=== PATIENT | male | born 1990 | race Two or more races ===

== ENCOUNTER 2021-06-08 19:30 | Emergency (ER) | payer SELFPAY ==
[2021-06-08 19:31] VITALS: BP 148/90; PULSE 85; RESP 18; TEMP 36.9; O2SAT 99; BMI 27.4
--- NOTE | 2021-06-08 19:48 | ECG_ITS ---
APPROVED REPORT Exam: Resting ECG HR:87 bpm ECG Measurements Heart Rate 87 AXES PA 162 P 53 QRSd 78 QRS 47 QT 328 T 64 QTc 394 Conclusion Normal sinus rhythm Nonspecific T wave abnormality Abnormal ECG Electronically signed by : Ramón Montez MD 06/11/2021 20:43:56
--- NOTE | 2021-06-08 19:49 | XR_ITS ---
PROCEDURE INFORMATION: Exam: XR Chest Exam date and time: 06/08/2021 7:49 PM Age: 31 years old Clinical indication: Dyspnea; Patient HX: SOA, non smoker TECHNIQUE: Imaging protocol: XR of the chest. Views: 2 views. COMPARISON: No relevant prior studies available. FINDINGS: Lungs: Lungs are clear. Pleural spaces: No pleural effusion. No pneumothorax. Heart/Mediastinum: Cardiomediastinal silouhette is within normal limits. Bones/joints: No acute osseous abnormality. Soft tissues: Unremarkable. IMPRESSION: No acute findings.
[2021-06-08 20:05] LABS: Basophils % 0.8 % (0.1-2.0); Eosinophils % 0.1 % (0.1-12.0); Hematocrit 44.4 % (42.0-52.0); Hemoglobin 14.5 g/dL (14.1-18.0); Lymphocytes # 0.8 K/mm3 (0.7-4.5); Mean Corpuscular HGB Conc 32.8 g/dL (31.8-35.4); Mean Corpuscular Hemoglobin 30.4 pg (27.0-31.2); Mean Corpuscular Volume 92.8 fl (80-94); Mean Platelet Volume 9.3 fl (7.4-10.4); Monocytes # 0.2 K/mm3 (0.1-1.0); Monocytes % 5.4 % (1.7-9.3); Neutrophils # 3.3 K/mm3 (1.8-7.8); Neutrophils % 74.7 % (37.0-80.0); Platelet Count 200 K/mm3 (142-424); Red Blood Count 4.78 M/mm3 (4.60-6.20); Red Cell Distribution Width 12.9 % (11.5-17.5); White Blood Count 4.4 K/mm3 (4.8-10.8)
[2021-06-08 20:07] LABS: Chloride 100 mmol/L (98-107)
[2021-06-08 20:08] LABS: Potassium 3.9 mmoL/L (3.5-5.1); Sodium 138 mmol/L (136-145)
[2021-06-08 20:10] LABS: Alanine Aminotransferase 28 U/L (12-78); Albumin Level 4.3 g/dl (3.5-5.0); Albumin/Globulin Ratio 1.2 (1.1-1.8); Alkaline Phosphatase 126 U/L (38-126); Anion Gap 16.9 mEq/L (5-15); Aspartate Amino Transferase 37 U/L (17-59); Bilirubin,Total 0.2 mg/dl (0.2-1.3); Blood Urea Nitrogen 9 mg/dl (9-20); Carbon Dioxide 25 mmol/L (22.0-30.0); Creatinine Clearance Estimated 123 mL/min (50-200); Estimated Glomerular Filt Rate 87 ml/min (>60); GFR (African American) 105 ML/MIN (>60); Globulin 3.7 g/dL (1.3-3.2)
[2021-06-08 20:11] LABS: Calcium 8.4 mg/dl (8.4-10.2); Glucose 113 mg/dl (74-100)
[2021-06-08 20:14] LABS: Lactic Acid 1.5 mmol/L (0.7-2.1)
[2021-06-08 20:16] LABS: C-Reactive Protein 41.1 mg/L (0-4)
[2021-06-08 20:20] LABS: Influenza A, PCR Not Detected (NotDetected); Influenza B, PCR Not Detected (NotDetected)
--- NOTE | 2021-06-08 20:31 | [facility].EDSOB ---
ED Disposition Clinical Impression: COVID-19, Pleurisy Disposition: Home, Self-Care Condition on Discharge: Good Instructions: DI for COVID-19 (Suspected or Confirmed ) Additional Instructions: fluids and advil/tyenol and see pcp for follow up Referrals: Provider,Referral, [Primary Care Provider] - - Critical Care Critical Care Time: No Attestation: On 06/08/21, the high probability of a clinically significant, sudden or life threatening deterioration of the following system(s) required my full and direct attention, intervention and personal management. The time I documented below is in addition to time spent performing reported procedures but includes the following listed in this critical care notation. Medical Decision Making - Medical Records Medical records reviewed: Yes: I reviewed the patient's medical records. - Alan Inquiry Pt receiving controlled substance: No Vital Signs: 06/08/21 19:31 Temperature 98.4 F Temperature Source Oral Pulse Rate [Right] 85 Respiratory Rate 18 Blood Pressure [Right Arm] 148/90 H Blood Pressure Mean [Right Arm] 109 02 Sat by Pulse Oximetry 99 - Lab Data Lab results reviewed: Yes: I reviewed the patient's lab results. Lab Results 06/08/21 19:51: WBC 4.4 L, RBC 4.78, Hgb 14.5, Hct 44.4, MCV 92.8, MCH 30.4, MCHC 32.8, RDW 12.9, Plt Count 200, MPV 9.3, Neut % (Auto) 74.7, Lymph % (Auto) 19.0, [place] % (Auto) 5.4, Eos % (Auto) 0.1, Baso % (Auto) 0.8, Neut # (Auto) 3.3, Lymph # (Auto) 0.8, [place] # (Auto) 0.2, Eos # (Auto) 0.0, Baso # (Auto) 0.0, ESR 27 H 06/08/21 19:51: Sodium 138, Potassium 3.9, Chloride 100, Carbon Dioxide 25, Anion Gap 16.9 H, BUN 9, Creatinine 1.00, Estimated Creat Clear 123, Estimated GFR 87, Est GFR ( Amer) 105, Glucose 113 H, Calcium 8.4, Total Bilirubin 0.2, AST 37, ALT 28, Alkaline Phosphatase 126, Troponin I < 0.01, C-Reactive Protein 41.1 H, Total Protein 8.0, Albumin 4.3, Globulin 3.7 H, Albumin/Globulin Ratio 1.2, Procalcitonin 0.070 06/08/21 19:51: Lactate 1.5 06/08/21 19:53: SARS-CoV-2 (PCR) Detected A, Influenza A Untype (PCR) Not detected, Influenza Type B (PCR) Not detected Result diagrams: 06/08/21 19:51 06/08/21 19:51 Orders (Tests/Meds): ED MEDICATIONS Generic Name Dose Route Start Last Admin Trade Name Freq PRN Reason Stop Dose Admin Sodium Chloride 1,000 mls @ 999 mls/hr 06/08/21 20:00 06/08/21 19:53 Sod Chlor 0.9% 1000ml Bag IV 06/08/21 21:00 999 mls/hr .Q1H1M PIPER Administration Discontinued Medications Generic Name Dose Route Start Last Admin Trade Name Freq PRN Reason Stop Dose Admin Dexamethasone Sodium Phosphate 10 mg 06/08/21 19:51 06/08/21 19:53 Dexamethasone 4mg/Ml 5ml Mdv IV 06/08/21 19:52 10 mg ONCE ONE Administration Iopamidol 70 ml 06/08/21 21:00 06/08/21 21:01 Iopamidol-370 (76%);100ml Bottle IV 06/08/21 21:01 70 ml ONCE ONE Administration Ketorolac Tromethamine 30 mg 06/08/21 19:51 06/08/21 19:53 Ketorolac 30mg/Ml Vial IV 06/08/21 19:52 30 mg ONCE ONE Administration Sodium Chloride 50 ml 06/08/21 21:00 06/08/21 21:01 0.9 % Sodium Chloride 50 Ml Vial IV 06/08/21 21:01 50 ml ONCE ONE Administration Sodium Chloride 10 ml 06/08/21 21:00 06/08/21 21:01 Sodium Chloride 0.9% 10ml Syr (Rad Only) IV 06/08/21 21:01 10 ml ONCE ONE Administration ORDERS Category Date Time Status Troponin I Q3H Lab 06/08/21 23:00 Ordered Troponin I Q3H Lab 06/09/21 02:00 Ordered Blood Culture Stat Micro 06/08/21 19:51 Received - Radiology Data #1 Image(s): Chest Image Reviewed: Yes I have reviewed radiologist's interpretation Preliminary Findings: Normal/NAD - CT Data CT Scan: Chest Time Received: 21:[address] Reviewed: Yes: I have viewed the radiologist's interpretation Preliminary Findings: Abnormal - ECG Data Tracing #1 Normal Sinus Rhythm: Yes Ischemic changes: non-specific ST-T wave changes Medical Decision Compa
[2021-06-08 20:32] LABS: Erythrocyte Sedimentation Rate 27 mm/hr (0-15)
--- NOTE | 2021-06-08 20:32 | CT_ITS ---
PROCEDURE INFORMATION: Exam: CTA Chest With Contrast Exam date and time: 06/08/2021 8:32 PM Age: 31 years old Clinical indication: Dyspnea; Additional info: SOA TECHNIQUE: Imaging protocol: Computed tomographic angiography of the chest with contrast. 3D rendering (Not supervised by radiologist): MIP and/or 3D reconstructed images were created by the technologist. Radiation optimization: All CT scans at this facility use at least one of these dose optimization techniques: automated exposure control; mA and/or kV adjustment per patient size (includes targeted exams where dose is matched to clinical indication); or iterative reconstruction. Contrast material: ISOVUE; Contrast volume: 70 ml; Contrast route: INTRAVENOUS (IV); COMPARISON: CR XR CHEST 2V 06/08/2021 8:02 PM FINDINGS: Pulmonary arteries: No pulmonary emboli. Aorta: No aortic dissection or aneurysm. Lungs: Multiple scattered subcentimeter ground-glass airspace opacities in the bilateral lungs, predominantly in the periphery. Heterogeneous consolidative opacity in the dependent portion of the right lung base. Pleural spaces: No pneumothorax. No pleural effusion. Heart: Heart is upper limits of normal in size. No pericardial effusion. No interventricular septal deviation or abnormal RV:LV ratio to suggest right heart strain. Lymph nodes: Multiple conspicuous subcentimeter mediastinal and hilar lymph nodes, right greater than left, likely reactive. Bones/joints: No acute fracture or malalignment. Soft tissues: Unremarkable. Other findings: No acute findings or suspicious mass lesions in the visualized upper abdomen. IMPRESSION: 1. Multiple scattered subcentimeter ground-glass airspace opacities primarily in the periphery of the bilateral lungs. Findings are concerning for septic emboli given peripheral distribution and similarity in size/appearance with differential diagnosis including multifocal pneumonia. Follow-up imaging to resolution is warranted. 2. Heterogeneous consolidative opacity in the dependent portion of the right lung base is suspicious for aspiration pneumonia, although may be related to the same process as above. Please see comments below. COMMENTS: Pulmonary findings described above are not typical for commonly reported imaging features of COVID-19 pneumonia, although do not exclude it. Other processes such as other viral pneumonias (i.e. influenza), organizing pneumonia, drug toxicity and connective tissue disease can cause a similar imaging pattern. (Reference: Jon) REFERENCES: Jon Arrieta, et al., [employer] Society of [place] Expert Consensus Statement on Reporting Chest CT Findings Related to COVID-19. Endorsed by the Society of [employer], the [place] [employer], and [employer]. Published December 29, 2019.
--- NOTE | 2021-06-08 20:41 | PC.NURSE ---
2041 pt took to radiology for CT
[2021-06-08 20:43] LABS: Troponin I < 0.01 ng/ml (0.00-0.034)
--- NOTE | 2021-06-08 20:54 | PC.NURSE ---
Pt back from radiology
[2021-06-08 21:06] LABS: Coronavirus 19, PCR Detected (NotDetected)
[2021-06-08 22:00] VITALS: BP 113/71; PULSE 76; RESP 18; TEMP 36.9; O2SAT 97
== END 2021-06-08 22:05 | disposition home or self-care (01) ==
PROVIDERS: Emergency Provider Emergency Medicine
DX: U07.1 COVID-19 (principal); R09.1 Pleurisy
CPT/HCPCS: 71046; 71275; 80053; 83605; 84145; 84484; 85025; 85651; 86140; 93005; 96365; 96375; 99283; Q9967; U0003